=== PATIENT | female | born 1935 | race Caucasian/White ===

== ENCOUNTER 2017-05-31 01:55 | Observation (INO) | payer MEDICARE ==
[2017-05-31] MEDS ORDERED: Metoprolol Tartrate IV* 1 MG/ML 5 ML VIAL IV PRN (02:21)
[2017-05-31] MEDS ORDERED: Docusate CAP* 100 MG PO PRN (04:44)
[2017-05-31 06:20] LABS: BUN/Creatinine Ratio 25.2 (8-20); Calcium 9.6 mg/dL (8.6-10.3); EGFR African American 45.2 (>60); EGFR Non-African American 35.1 (>60); Potassium 3.7 mmol/L (3.5-5.0)
[2017-05-31 06:23] LABS: Troponin I 0.03 ng/mL (<0.04)
[2017-05-31] MEDS: IRON POLYSACCHARIDE COMPLEX VI PO SCH ×2 (07:49→22:14)
[2017-05-31] MEDS: Allopurinol TAB* 300 MG PO SCH (07:50)
[2017-05-31] MEDS: Furosemide TAB* 40 MG PO SCH (07:50)
[2017-05-31] MEDS ORDERED: cloNIDine TAB* 0.1 MG PO SCH ×2 (09:00)
[2017-05-31] MEDS: Potassium Chlor TAB* 20 MEQ TAB.ER PO SCH (10:07)
--- NOTE | 2017-05-31 11:34 | HP ---
CC: Dr. Finnegan; Dr. Frias * ADMISSION HISTORY AND PHYSICAL: DATE OF ADMISSION: 05/31/17 CHIEF COMPLAINT: Tachycardia. HISTORY OF PRESENT ILLNESS: Ms. Rai is an 82-year-old woman with history of hypertension and kidney disease who presented to the emergency department at [facility] on the day of admission with 1 week of URI symptoms. She states she was at home and felt different, so she checked her blood pressure and found her heart rate in the 140s on the monitor, and her blood pressure a little higher than normal. She felt weak all over, but had no chest pain or palpitations or focal weakness. She came to the emergency department and was found to have heart rate in the 140s, which responded to IV labetalol, which brought her heart rate down to 93 to 110 range. The patient had a troponin test in the ER, which came back at 0.038. Angelina Zabala, physician statistical assistant requested transfer of the patient to this hospital for observation or admission based on the tachycardia and elevated troponin and I accepted the patient. In obtaining further history from the patient, she does state that she has been taking medications for her URI, possibly Mucinex including Sudafed. Review of the chart also shows that she was admitted to the [facility] from March 05 to with hypertensive urgencies. PAST MEDICAL HISTORY: Includes chronic kidney disease stage 2 and hypertension , end-stage renal disease. She also has history of uterine cancer. PAST SURGICAL HISTORY: Left leg distal leg tibial fracture with ORIF in the past. She had BELIA/BSO for cancer in 2015. MEDICATIONS ON ADMISSION: 1. Allopurinol 300 mg p.o. daily. 2. Calcium carbonate 1 tab p.o. daily. 3. Clonidine 0.1 mg p.o. b.i.d. 4. Docusate 100 mg p.o. daily. 5. Furosemide 40 mg p.o. q.a.m. 6. Multivitamin with iron 1 tab p.o. daily. 7. Meclizine 25 mg p.o. daily. 8. Simethicone as needed ALLERGIES: AMLODIPINE, SULFA FAMILY HISTORY: Notable for son who has had VT at age 53. Brother at age 69 of VT. Daughter has thyroid cancer at age 40. SOCIAL HISTORY: She is retired, worked in insurance. She is a . She has 2 children. Her healthcare proxy will be her daughter, Yessi. She never smoked. No alcohol or drug use. REVIEW OF SYSTEMS: The patient denies any fevers, weight loss, or anorexia. The patient denies any chest pain or palpitations. The patient denies any hemoptysis, but does have cough and some shortness of breath on exertion. The patient denies any diarrhea, constipation, or abdominal pain. Remainder of her 14-point review of systems is negative other than that mentioned in the HPI. PHYSICAL EXAMINATION GENERAL: She is elderly woman, in no acute distress. VITAL SIGNS: Temperature is 36.5, pulse 87, respirations 18, blood pressure is 120/80, O2 sat is 77% on room air. HEENT: Head is normocephalic, atraumatic. Sclerae anicteric. Pupils are equal , round and reactive to light and accommodation. Oropharynx is moist, no lesions. NECK: No JVD. No carotid bruit. No thyromegaly. LUNGS: Clear to auscultation and percussion bilaterally. HEART: Regular rate and rhythm. No murmurs or gallops. ABDOMEN: Soft, nontender. Positive bowel sounds. No hepatosplenomegaly. EXTREMITIES: No peripheral edema. Dorsalis pedis pulses are 1+ bilaterally. NEUROLOGIC: Cranial nerves II through XII are intact. Motor strength is 5/5 throughout. Deep tendon reflexes are symmetric. LABORATORY DATA: Sodium 137, potassium 4.1, chloride 100, bicarbonate 26, BUN 41, creatinine 1.7, glucose 132, calcium 10.0, magnesium 1.8, albumin 3.6, AST 21, ALT 19. Troponin 0.03 in [facility] and second troponin 0.04 at this hospital. White count 7.53, hemoglobin 10.7, hematocrit 34.9%, and platelets 239. EKG shows sinus tachycardia at 114 beats per minute with left axis deviation and no clear ischemia. Chest x-ray is negative for infiltrates or effusions over at [facility]. ASSESSMENT AND PLAN: An 82-year-old woman presenting with tachycardia. Differential tachycardia will include sepsis, dehydration, anemia, febrile illness, anxiety, cardiac arrhythmia, or medication side effects. The patient will be admitted to this hospital for observation and further testing to determine which of these is the primary cause. It is possible that she was taking Sudafed and this caused tachycardia. She does have elevated troponin, which would point towards cardiac ischemia or also could be related to her chronic kidney disease. This will be repeated and trended. The stress test could be completed as an outpatient as she is relatively asymptomatic, does not appear to have a stable angina. Code status is full. Healthcare proxy will be her daughter. For DVT prophylaxis, she will have subcutaneous Lovenox while she is here in the hospital. [id number]/[facility] #: [id number] TAQUERIA
--- NOTE | 2017-05-31 14:35 | PN ---
Subjective Date of Service: 05/31/17 Interval History: Pt is feeling well. She states she never felt unwell. She denies any chest pain , palpitations or SOB. Objective Active Medications: Allopurinol (Zyloprim Tab*) 300 mg PO DAILY [facility] Last Admin: 05/31/17 07:50 Dose: 300 mg Clonidine HCl (Catapres Tab*) 0.1 mg PO BID [facility] Docusate Sodium (Colace Cap*) 100 mg PO DAILY PRN PRN Reason: CONSTIPATION Furosemide (Lasix Tab*) 40 mg PO DAILY [facility] Last Admin: 05/31/17 07:50 Dose: 40 mg Metoprolol Tartrate (Lopressor Iv*) 5 mg IV Q6H PRN PRN Reason: BLOOD PRESSURE Pto:Nf Med* (Iron Polysaccharide Complex-Vi [Poly- Iron 150 Forte 150- 25-1 Mg- Mcg-Mg 1 cap PO BID [facility] Last Admin: 05/31/17 07:49 Dose: Not Given Potassium Chloride (Klor Con Er Tab*) 20 meq PO DAILY [facility] Last Admin: 05/31/17 10:07 Dose: 20 meq Vital Signs 05/31/17 05/31/17 05/31/17 02:10 06:47 07:25 Temperature 97.7 F 97.4 F Pulse Rate 87 118 Respiratory 18 18 18 Rate Blood Pressure 120/80 122/74 (mmHg) O2 Sat by Pulse 97 97 Oximetry Oxygen Devices in Use Now: None Appearance: Elderly female sitting up in bed, NAD Eyes: No Scleral Icterus Ears/Nose/Mouth/Throat: Mucous Membranes Moist Respiratory: Symmetrical Chest Expansion and Respiratory Effort, Clear to Auscultation Cardiovascular: NL Sounds; No Murmurs; No JVD, RRR Abdominal: NL Sounds; No Tenderness; No Distention Extremities: No Clubbing, Cyanosis Skin: No Rash or Ulcers, No Nodules or Sclerosis Neurological: Alert and Oriented x 3 Result Diagrams: 05/31/17 05:51 Assess/Plan/Problems-Billing Ms Rai is an 82 yo F who has a h/o HTN, stage III CKD and endometrial cancer who presented to [facility] with c/o tachycardia (found incidentally while checking her BP) and was transferred to [facility] [place] for evaluation due to a slightly elevated troponin. - Patient Problems (1) SVT (supraventricular tachycardia) Current Visit: Yes Status: Acute Code(s): I47.1 - SUPRAVENTRICULAR TACHYCARDIA SNOMED Code(s): 0200789 Comment: THe patient has been having runs of SVT. Most recent developed after I saw the patient and while I was writing this note. She was sitting up in bed, still when the nurse noted a HR of ~150 and regular. She broke on her own. Will place hold parameters on clonidine for now and start metoprolol 12.5mg BID to try to prevent the SVT. Will order an echo for tomorrow. (2) Elevated troponin Current Visit: Yes Status: Acute Code(s): R74.8 - ABNORMAL LEVELS OF OTHER SERUM ENZYMES SNOMED Code(s): 655060137 Comment: Likely secondary to demand ischemia secondary to rapid HR. Will order echo for tomorrow. (3) HTN (hypertension) Current Visit: Yes Status: Acute Code(s): I10 - ESSENTIAL (PRIMARY) HYPERTENSION SNOMED Code(s): 11569667 Comment: BP is under good control. Continue to monitor with addition of metoprolol. (4) DVT prophylaxis Current Visit: Yes Status: Acute Code(s): KCR4225 - SNOMED Code(s): 762239939 Comment: start SQ heparin (5) Full code status Current Visit: Yes Status: Acute Code(s): Z78.9 - OTHER SPECIFIED HEALTH STATUS SNOMED Code(s): 812790730
[2017-05-31] MEDS: Metoprolol Tartrate TAB* 25 MG PO SCH ×2 (14:49→22:10)
[2017-05-31] MEDS: cloNIDine TAB* 0.1 MG PO SCH (22:09)
[2017-05-31] MEDS: Heparin VIAL(*) 5000 UNITS/ML VIAL (FIVE THOUSAND) SUBCUT SCH (22:11)
[2017-06-01 02:14] LABS: Urine Bilirubin Negative (Negative); Urine Glucose Negative (Negative); Urine Nitrite Negative (Negative)
[2017-06-01] MEDS: Heparin VIAL(*) 5000 UNITS/ML VIAL (FIVE THOUSAND) SUBCUT SCH ×2 (05:29→13:44)
[2017-06-01 06:40] LABS: Hematocrit 35 % (35-47); Hemoglobin 10.5 g/dl (12.0-16.0); Mean Corpuscular HGB Conc 30 g/dl (31-36); Mean Corpuscular Hemoglobin 23 pg (27-31); Mean Corpuscular Volume 76 fL (80-97); Mean Platelet Volume 10 um3 (7.4-10.4); Red Cell Distribution Width 18 % (10.5-15)
[2017-06-01 06:41] LABS: Comments Flag Yes
[2017-06-01] MEDS: Potassium Chlor TAB* 20 MEQ TAB.ER PO SCH (09:42)
[2017-06-01] MEDS: IRON POLYSACCHARIDE COMPLEX VI PO SCH (09:45)
[2017-06-01] MEDS: Allopurinol TAB* 300 MG PO SCH (09:51)
[2017-06-01] MEDS: cloNIDine TAB* 0.1 MG PO SCH (09:53)
[2017-06-01] MEDS: Metoprolol Tartrate TAB* 25 MG PO SCH (09:58)
[2017-06-01] MEDS: Furosemide TAB* 40 MG PO SCH (09:58)
[2017-06-01] MEDS ORDERED: Perflutren Lipid Microsphere* 3 ML VIAL ONE (11:43)
--- NOTE | 2017-06-01 13:44 | RAD ---
Indication: Endometrial carcinoma status post radiation therapy. Real-time sonography of the kidneys was performed. The right kidney measures 9.5 x 4.1 x 5.4 cm. No hydronephrosis is noted. The left kidney measures 4.5 x 2.9 x 2.8 cm and appears atrophic. Parapelvic cyst is noted in the lower pole of the left kidney measuring up to 3.0 cm. The prevoid urinary bladder measures 70 mL. No significant post void residual is noted. Bladder wall measures 5 mm. No bladder wall masses are noted. Ureteral jets for Limited in evaluation. IMPRESSION: No hydronephrosis is noted. Atrophic left kidney.
[2017-06-01 13:57] VITALS: BP 91/69
--- NOTE | 2017-06-01 14:51 | ECHO ---
Patient: NIKI LANDAVERDE [facility] Rec#: [id number] : 1935 Date: 06/01/2017 Age: 82y Height: 152 cm / 59.8 in Weight: 86.8 kg / 191.3 lbs Sex: F BSA: 1.8 Room#: [facility] Admit Date#: 05/31/2017 Type: Inpatient Referring: Daisy Sanchez DO Reading: Stephane Yanez MD Supervisor Assembly Room: Clementine Monahan RN RDCS CC: Ken Finnegan DO Transthoracic Echocardiogram Indication: SVT BP: 165/86 HR: 91 Rhythm: NSR with PACs Findings History: HTN, CKD, obesity Technical Comments: The study is technically limited due to patient body habitus. Completed at 1230. Left Ventricle: The left ventricular chamber size is normal. Mild to moderate concentric left ventricular hypertrophy is observed. Global left ventricular wall motion and contractility are within normal limits. The left ventricle appears hyperdynamic. The estimated ejection fraction is greater than 65%. There is an E to A reversal in the mitral valve flow pattern suggestive of diastolic dysfunction. Left Atrium: The left atrial chamber size is normal. Right Ventricle: The right ventricular chamber size and systolic function are within normal limits. Right Atrium: The right atrial cavity size is normal. Aortic Valve: The aortic valve is trileaflet. The aortic valve leaflets are mildly thickened. Systolic excursion of the right coronary cusp is reduced. There is no evidence of aortic valve sclerosis or stenosis. There is no evidence of aortic regurgitation. There is mild aortic stenosis. The mean gradient of the aortic valve is 10 mmHg. The peak instantaneous gradient of the aortic valve is 15.7 mmHg. The aortic valve area, by peak velocities, is calculated at 1.6 cm2. The aortic valve area, by VTI's, is calculated at 1.6 cm2. Mitral Valve: There is mitral annular calcification. The mitral valve leaflets are mildly thickened. Mild subvalvular thickening of the mitral valve is visualized. There is a trace of mitral regurgitation. There is no evidence of mitral stenosis. Tricuspid Valve: The tricuspid valve leaflets are normal. There is trace tricuspid regurgitation. Unable to estimate the right ventricular systolic pressure. Pulmonic Valve: The pulmonic valve structure is not well visualized. There is a trace pulmonic regurgitation. There is no pulmonic stenosis. Pericardium: There is no significant pericardial effusion. A pericardial fat pad is visualized. Aorta: There is no dilatation of the ascending aorta. The aortic arch is not well visualized. There is no dilation of the aortic root. Pulmonary Artery: The main pulmonary artery is not well visualized. Venous: The venous system is not well visualized. The inferior vena cava is not visualized. Contrast: Definity was used to optimize study. A total of 3 ml of Definity was administered IV to enhance endocardial border definition. Conclusions Global left ventricular wall motion and contractility are within normal limits. The left ventricle appears hyperdynamic. The estimated ejection fraction is greater than 65%. There is an E to A reversal in the mitral valve flow pattern suggestive of diastolic dysfunction. There is no evidence of aortic regurgitation. There is mild aortic stenosis. There is a trace of mitral regurgitation. There is trace tricuspid regurgitation. Unable to estimate the right ventricular systolic pressure. There is no significant pericardial effusion. Measurements Name Value Normal Range RVDdMajor (2D) 3 cm (2.2 - 4.4) RAd ISD 4CH 4.5 cm (3.4 - 4.9) RA (A4C)W 3.2 cm (2.9 - 4.6) IVSd (2D) 1.3 cm (0.6 - 1) LVPWd (2D) 1.2 cm (0.6 - 1) LVIDd (2D) 4.4 cm (3.6 - 5.4) Aortic Annulus 1.7 cm (1.4 - 2.6) Ao root diameter (2D) 2.9 cm (2.1 - 3.5) Ascending Ao 2.9 cm (2.1 - 3.4) LA dimension (AP) 2D 3.5 cm (2.3 - 3.8) LAd ISD 4CH 4.7 cm (2.9 - 5.3) LA ISD 4CH W 3.4 cm (2.5 - 4.5) Name Value Normal Range LA ESV SP 4CH (A/L) 43 ml - LA ESV SP 2CH (A/L) 56 ml - LA ESV BP (A/L) 50 ml - LA ESV BP (A/L) index 27.3 ml/m2 - LA ESV SP 4CH (MOD) 41 ml - LA ESV SP 2CH (MOD) 51 ml - Name Value Normal Range MV E-wave Vmax 0.74 m/sec - MV deceleration time 332 msec - MV A-wave Vmax 1.2 m/sec - MV E:A ratio 0.63 ratio - LV septal e' Vmax 0.06 m/sec - LV lateral e' Vmax 0.08 m/sec - LV E:e' septal ratio 12.3 ratio - LV E:e' lateral ratio 9.3 ratio - Name Value Normal Range AV Vmax 2 m/sec - AV VTI 43.8 cm - AV peak gradient 15.7 mmHg - AV mean gradient 10 mmHg - LVOT diameter 2 cm - LVOT Vmax 0.99 m/sec - LVOT VTI 21.7 cm - LVOT peak gradient 3.9 mmHg - LVOT mean gradient 2 mmHg - DOI (VTI) 0.5 ratio - DOI (Vmax) 0.5 ratio - ROS (continuity Vmax) 1.6 cm2 - ROS (continuity VTI) 1.6 cm2 - Name Value Normal Range PV Vmax 0.65 m/sec -
--- NOTE | 2017-06-02 02:16 | DS ---
CC: Dr. Ken Finnegan; Dr. Diego DISCHARGE SUMMARY: DATE OF ADMISSION: 05/31/17 DATE OF DISCHARGE: 06/01/17 PRIMARY CARE PROVIDER: Dr. Ken Finnegan. PLANTING MATERIAL UNLOADER: Dr. Diego. DISCHARGE DIAGNOSIS: Episodes of supraventricular tachycardia. SECONDARY DIAGNOSES: 1. Chronic kidney disease, stage 3. 2. Hypertension. 3. History of uterine cancer status post total abdominal hysterectomy, bilateral salpingo-oophorect tab and radiation therapy in 2014. 4. Status post left tibial fracture ORIF. MEDICATIONS: 1. Allopurinol 300 mg p.o. daily. 2. Calcium plus vitamin D 500/200 1 tablet p.o. daily. 3. Colace 100 mg p.o. daily as needed for constipation. 4. Furosemide 40 mg p.o. daily. 5. Iron polysaccharide 1 capsule p.o. b.i.d. 6. Iron plus vitamin C plus vitamin B12 1 tablet p.o. daily. 7. Meclizine 25 mg p.o. daily as needed for dizziness. 8. Simethicone 125 mg p.o. daily as needed for diarrhea. Medication change: Clonidine was reduced from 0.1 mg p.o. b.i.d. to 0.1 mg p.o. at bedtime. New medication: Metoprolol tartrate 12.5 mg p.o. b.i.d. HOSPITAL COURSE: Ms. Rai is an 82-year-old lady with past medical history as stated above that presented to [facility] with complaints of rapid heart rate. She states that she had n o chest pain or palpitations, but she measured her blood pressure and her monitor showed her heart r ate of 140, so that prompted her visit to the emergency room. As per HPI, she was found to have a h eart rate in the 140's, responded to IV labetalol, but she had a minimally elevated troponin, so foster t prompted her transfer to our facility. There is report of an upper respiratory infection and that she took Sudafed and that could have prompted this episode. In our facility, the patient had serial troponins that were 0.04, 0.03, and 0.03. The troponin was m inimally elevated and this could be secondary to the episode of SVT or her chronic kidney disease. As described above, the patient was asymptomatic. While in telemetry, she had one episode of SVT wi th heart rate of 160's and she was asymptomatic and unaware at that point. Decision was made to start her on metoprolol and she has had no further episodes of SVT so far. Wit h the combination of metoprolol and clonidine, her blood pressure has been on the softer side, so th e idea is to transition her from clonidine to metoprolol. We are going to cut down her clonidine to 0.1 mg at bedtime only and start metoprolol 12.5 twice a day. Eventually, as outpatient, the plan will be to discontinue the clonidine and continue the metoprolol. The patient had a transthoracic echocardiogram that showed global left ventricular wall motion and c ontractility within normal limits, the left ventricle appears hyperdynamic with ejection fraction gr eater than 65%. There is mild aortic stenosis. The patient declined stress test at this time. She states she has chronic back pain and cannot tole rate lying 15 minutes on the nuclear medicine table. I talked to her multiple times and I explained that even though her echocardiogram did not show anything major, this is not enough to rule out cor onary artery disease. She states that she will think about it and may consider having a stress test as outpatient to complete her workup. She states that 2 years ago she was admitted to [facility] where she was found to have a rapid hear t beat. She stated she had a workup at that time and "everything was normal." At the time of this dictation, a TSH level was pending, and the results should be followed as outpat ient. The patient was very concerned with the fact that she was going to miss her renal ultrasound appoint ment. I contacted Dr. Diego and she had her renal ultrasound done here. It showed no hydronephros is, only atrophic left kidney that apparently the patient was already aware of. She is medically stable for discharge at this time. She understands the plan to transition from kathy nidine to metoprolol. I believe she should have a Holter as outpatient since her SVT episodes are p retty much asymptomatic. If Holter still shows episodes of SVT, her metoprolol dose needs to be tit rated and she may benefit of seeing a manager part as outpatient at that point. Further conversatio ns regarding the importance of stress test should also be continued. The patient is medically stable to be discharged at this time. PHYSICAL EXAMINATION: Vital Signs: Temperature 97.2, heart rate is 73, respiratory rate is 16, oxy gen saturation 96% on room air, blood pressure is 91/69. General: The patient is a pleasant elderly lady, lying in bed, in no acute distress. CVS: Normal S1, S2. Regular rate and rhythm. Chest: Breath sounds present bilaterally with no added sounds. Extremities: No edema. Neuro: She is franc rt, oriented x3. Able to move all 4 extremities. DIET: Heart healthy diet. Avoid caffeine. ACTIVITIES: As tolerated. DISPOSITION: To home. STATUS WHILE IN THE HOSPITAL: Observation. Please keep in mind this is a summarized version of this patient's hospital stay. If you need more i nformation, please feel free to call me at [phone] or please request the full medical records. TIME SPENT: Approximately 45 minutes were spent to complete this discharge. [id number]/[facility] #: [id number]
== END 2017-06-01 16:45 | disposition home or self-care (01) ==
LOC: MEDTELE 01:58
PROVIDERS: ADMIT Internal Medicine; ATTEND Internal Medicine
DX: I47.1 Supraventricular tachycardia (principal); I12.9 Hypertensive chronic kidney disease with stage 1 through stage 4 chronic kidney disease, or unspecified chronic kidney disease; N18.3 Chronic kidney disease, stage 3 (moderate); R74.8 Abnormal levels of other serum enzymes; Z85.42 Personal history of malignant neoplasm of other parts of uterus; Z79.899 Other long term (current) drug therapy; Z88.2 Allergy status to sulfonamides; Z88.8 Allergy status to other drugs, medicaments and biological substances
CPT/HCPCS: 36415; 76770; 80048; 81003; 84443; 84484; 85025; 93005; 93306; 96372; A9270-GY; C8929; G0378; J1644

== ENCOUNTER 2018-07-08 10:17 | Inpatient (IN) | payer MEDICARE ==
[2018-07-08] MEDS ORDERED: Docusate CAP* 100 MG PO PRN (14:58)
[2018-07-08] MEDS ORDERED: Simethicone TAB* 80 MG TAB.CHEW PO PRN (14:58)
[2018-07-08] MEDS ORDERED: ZOSYN 3.375 GM Q8H per EXTENDED INFUSION IVPB SCH ×2 (15:00)
[2018-07-08] MEDS ORDERED: Vancomycin per Pharmacy* NOTE FOLLOW UP PRN (15:00)
[2018-07-08] MEDS ORDERED: Albuterol 2.5 MG/3 ML NEB.SOL* (0.083%) INH PRN (15:01)
[2018-07-08] MEDS ORDERED: Magnesium Hydroxide LIQ* 30 ML UDC PO PRN (15:01)
[2018-07-08] MEDS ORDERED: LORazepam INJ* 2 MG/ML 1 ML VIAL IV PUSH PRN (15:01)
--- NOTE | 2018-07-08 15:20 | ADMNOTE ---
Admission Primary Care Provider: Ken Finnegan Chief Complaint: Fevers and rigors History of Present Illness: Mrs. Rai is a 83 yo female with complex medical history who has been followed locally by Dr. Augustin for her metastatic endometrial cancer. On she was admitted to the [facility] with flank pain and acute urinary obstruction, ultimately requiring a right percutaneous nephrostomy tube. This obstruction was felt secondary to progressive disease with rising Ca 125, however a biopsy was unsuccessful. She was started, appropriately, by Dr. Esparza, on Femara (aromatase inhibitor). During her admission she required IV antibiotics for a UTI, treated with Cetriaxone and ultimately discharged home on Amoxicillin 04/28/18. On discharge she followed-up locally with Dr. Augustin, on 05/26/19, at which time she was doing well and an outpatient PET was scheduled for 3 mo. time. Unfortunately over the last several weeks she had developed increased back pain (of which she adamantly states is related directly to the nephrostomy tube) and was admitted by her primary care provider , Dr. Finnegan, to [facility] for pain management on 06/30/18. Her pain was improved with use of narcotics and she was transitioned to Swing status on 07/05 as it was felt she could not return home independently. Unfortunately shortly after this transition she developed increased confusion and modification of her narcotics was attempted. On 05/07/18 she developed acute rigors and a fever and was started on broad spectrum antibiotics d/t concern for UTI with UA revealing +blood, WBCs, esterace, nitrates, and casts. Within the first 24 hours of starting abx. she has improved, however with active infection and appropriate timing for planned nephrostomy tube exchange, she has transferred to [facility] for further management. At this time she is quite adamant that she is not having abdominal pain and her only pain is directly related to her right percutaneous nephrostomy tube. She denies radicular pain on the right leg, however her family states she has been complaining of this for some time. She is visibly shaking though denies overt chills. Her family notes these 'chills' are similar to yesterday. She is tolerating PO liquids and has a marked improved mentation with notable agitation if specific needs are not met (for example she was quite upset on admission that she did not get a private room and when asked to sit up for better assessment of respiratory status and perc. tube she refused). Once accepting of re-positioning she then notes her right leg feels swollen. On transfer Dr. Finnegan had talked with her and the family regarding the potential that with her underlying cancer she may not survive this episode, however she is unable to specifically state a desire to be DNR. Her healthcare proxy mentions limited medical interventions. Allergies/Medications Medication: Acetaminophen (Tylenol Tab*) 650 mg PO Q4H PRN PRN Reason: fever, headache, rigors Hydrocodone Bitart/Acetaminophen ([place] 5-325 Tab*) 1 tab PO Q4H PRN PRN Reason: PAIN Albuterol (Ventolin 2.5 Mg/3 Ml Neb.Gemma*) 2.5 mg INH Q4H PRN PRN Reason: SOB/WHEEZING Clonidine HCl (Catapres Tab*) 0.1 mg PO BEDTIME BETZY Docusate Sodium (Colace Cap*) 100 mg PO DAILY PRN PRN Reason: CONSTIPATION Fentanyl (Duragesic Patch 12 Mcg/Hr *) 12 mcg TRANSDERM Q72H BETZY Piperacillin Sod/Tazobactam (Sod 3.375 gm/ Sodium Chloride) 100 mls @ 25 mls/ hr IVPB Q8H BETZY Lorazepam (Ativan Inj*) 0.5 mg IV PUSH Q4H PRN PRN Reason: agitation/insomnia/anxiety Magnesium Hydroxide (Milk Of Magnesia Liq*) 30 ml PO Q6H PRN PRN Reason: Indigestion/constipation Metoprolol Tartrate (Lopressor Tab*) 12.5 mg PO BID [facility] Pharmacy Profile Note (Fentanyl Patch Check Q Shift) 1 note N/A 0700,1900 BETZY Simethicone (Mylicon Tab*) 120 mg PO DAILY PRN PRN Reason: DIARRHEA Vancomycin 1 gram IV, initial dose given @ [facility] 07/07/18 1800 Allergies/Adverse Reactions: Allergies Allergy/AdvReac Type Severity Reaction Status Date / Time amlodipine Allergy Unknown Rash Verified 07/08/18 15:19 Sulfa (Sulfonamide Allergy Unknown Hives Verified 07/08/18 15:19 Antibiotics) History - Past Medical History Hx Blood Dyscrasias: Yes - thalassemia carrier, OPHELIA Hx Cancer: Yes - Endometrial Cancer daignosed in 06/2015 treated with surgery followed by RT and brachytherapy Hx Circulatory Problems: Yes - DVT 2014 (with cancer dx. & postopvenous), insufficiency with multiple SVTs Hx Hypercholesterolemia: Yes Hx Hypertension: Yes Hx Musculoskeletal Deformity: Yes - DJD LS/T/C-spine, cervical stenosis Surgical History: Yes Surgery Procedure, Year, and Place: Bilat. salpingo-oophorectomy, Hysterectomy, left ureteral stent, and lymph adenoectomy 06/27/15. Left open reduction internal fixation x2 1967. IVC filter 06/22/15. right percutaneous nephrostomy Other History: Asthma. left atrophic kidney. chronic renal insufficiency. benign positional vertigo. sacrococcygeal teratoma - Social History Hx Alcohol Use: No Hx Tobacco Use: No Marital Status: / Number of Children: Review of Systems - Review of Systems Constitutional Symptoms: Positive: Fatigue, Fever, Other - chills, pain Dermatology: Positive: Normal HEENT: Positive: Normal Eyes: Positive: Normal Pulmonary: Positive: Wheezing, Shortness of Breath, Asthma, Other - supplemental O2 Cardiology: Positive: Normal Gastroenterology: Positive: Normal Genital - Urinary: Positive: Hematuria - via perc. neph tube, Other Genitourinay - Female: Menopause - age 45 Musculoskeletal: Positive: Other - righ leg swollen Neurology: Positive: Normal Physical Exam - Physical Exam Physical Examination: Pale appearing, obese, female in no acute distress. Shaking chills noted, and notably agitated by current state of health. She is alert and oriented x3 and aware of her admission "due to something with my kidneys." No obvious neuro-cognitive deficits HRR, S1S2, distant heart sounds LS with scattered wheeze, tachypnea, and supplemental O2 +BS, with round soft and non-tender abd., no overt mass, however pt. would not allow a complete abd. exam yelling that "nothing is wrong with my stomach." +PP=bilat with slight swelling of right thigh Right percutaneous nephrostomy tube with dark, esme colored urine. Dressing CDI without tenderness surrounding during light palpation Able to reposition self minimally without assistance Results - Lab Results Lab Results: Notable Labs from [facility] 07/08/18: WBC 7.9, Granulocytes 83.9%, mococytes 8.4%, H&H 7.5/24.7, plt. 246 Na+ 137, K+ 4.4, BUN 29, Cr 1.8, BNP 457 07/07 lactic acid 0.6 - Radiology Radiology Results: CT abd./pevlis without contrast 06/30 @ [facility]: Findings: Again seen is percutaneous nephrostomy tube in the right kidney. No right hydronephrosis. Again seen is atrophic left kidney. Distended gallbladder with stones measures 9 cm in length by 4.3 cm diameter, with no pericholecystic fluid. Lung bases clear. Liver, spleen, adrenals unremarkable. Fatty replacement of the pancreas also see before. Small hiatal hernia. Small bowel normal caliber. Normal appendix. Colonic diverticulosis with no evidence of diverticulitis. Again seen is post hysterectomy. Bladder is seen. Atherosclerosis of the abdominal aorta with 2.7 cm dilatation distally also seen before. Multilevel degenerative changes in the lumbar spine also seen before. IVC filter seen CT head w/o contrast 06/30/18: Findings: chronic ischemic changes, volume loss with no acute intracranial findings. Visualized maxillofacial sinuses and mastoids clear. Assessment and Plan Impression: 83 yo female with recently progressive endometrial cancer transferred from [facility] due to acute pyelonephritis related to percutaneous nephrostomy tube. Slight improvement since initiation of antibiotics approximately 24 hours ago, however overall prognosis guarded related to progressive cancer and multiple co-morbidities. I discussed with the patient my concern that she may not recover from this acute insult, however she does not "see why that wouldn't happen" despite my attempts to review her current condition. Plan: 1. Admit Medical Unit 2. Cont. IV Vanco and Zosyn 3. Neph tube exchange by Dr. Angelo, goal of tomorrow 4. DVT prophylaxis with SCDs, no heparin d/t concern with blood in urine, decreased H&H, and planned intervention tomorrow 5. Cont. PRN pain meds and Fentanyl 6. Repeat CBC, CMP, lactic acid, blood cultures, and urine culture now Full Code, however review of healthcare proxy indicates patient would not want snf intubation or tube feeding
[2018-07-08] MEDS ORDERED: fentaNYL PATCH 12 MCG/HR TRANSDERM SCH (16:00)
[2018-07-08] MEDS: fentaNYL Patch Check Q Shift 1 NOTE FOLLOW UP SCH (17:52)
[2018-07-08] MEDS ORDERED: Vancomycin(*) 500 MG in NS 0.9% 250 ML* 250 ML IVPB ONE (18:00)
[2018-07-08] MEDS ORDERED: fentaNYL Patch Check Q Shift 1 NOTE SCH (19:00)
[2018-07-08 19:30] LABS: ABS Basophils 0 10^3/ul (0-0.2); ABS Eosinophils 0.1 10^3/ul (0-0.6); ABS Lymphocytes 0.4 10^3/ul (1.0-4.8); ABS Monocytes 0.7 10^3/ul (0-0.8); ABS Neutrophils 7.4 10^3/ul (1.5-7.7); ABS Nucleated RBC 0 10^3/ul; Eosinophil % 1.7 % (0-6); Hematocrit 24 % (35-47); Hemoglobin 7.6 g/dl (12.0-16.0); Lymphocyte % 4.6 % (25-47); Mean Corpuscular HGB Conc 32 g/dl (31-36); Mean Corpuscular Hemoglobin 22 pg (27-31); Mean Corpuscular Volume 71 fL (80-97); Mean Platelet Volume 9.6 um3 (7.4-10.4); Nucleated Red Blood Cells % 0.1; Platelet Count 248 10^3/ul (150-450); Red Blood Count 3.42 10^6/ul (4.00-5.40); Red Cell Distribution Width 18 % (10.5-15); White Blood Count 8.7 10^3/ul (3.5-10.8)
[2018-07-08 19:54] LABS: EGFR Non-African American 25.6 (>60)
[2018-07-08] MEDS: cloNIDine TAB* 0.1 MG PO SCH (20:22)
[2018-07-08] MEDS: Metoprolol Tartrate TAB* 25 MG PO SCH (20:22)
[2018-07-08] MEDS: Acetaminophen TAB* 325 MG PO PRN (20:32)
[2018-07-09] MEDS: ZOSYN 3.375 GM Q12H per EXTENDED INFUSION IVPB SCH ×4 (03:01→15:21)
[2018-07-09] MEDS: fentaNYL Patch Check Q Shift 1 NOTE FOLLOW UP SCH ×2 (06:45→18:40)
[2018-07-09] MEDS: Metoprolol Tartrate TAB* 25 MG PO SCH ×2 (09:04→20:08)
[2018-07-09] MEDS ORDERED: Vancomycin Random Level* NOTE FOLLOW UP ONE (10:00)
[2018-07-09 10:29] LABS: ABS Basophils 0 10^3/ul (0-0.2); ABS Eosinophils 0.2 10^3/ul (0-0.6); ABS Lymphocytes 0.3 10^3/ul (1.0-4.8); ABS Monocytes 0.5 10^3/ul (0-0.8); ABS Neutrophils 6.8 10^3/ul (1.5-7.7); ABS Nucleated RBC 0 10^3/ul; Eosinophil % 2.3 % (0-6); Hematocrit 24 % (35-47); Hemoglobin 7.3 g/dl (12.0-16.0); Lymphocyte % 3.8 % (25-47); Mean Corpuscular HGB Conc 31 g/dl (31-36); Mean Corpuscular Hemoglobin 22 pg (27-31); Mean Corpuscular Volume 71 fL (80-97); Mean Platelet Volume 9.7 um3 (7.4-10.4); Nucleated Red Blood Cells % 0; Platelet Count 232 10^3/ul (150-450); Red Cell Distribution Width 18 % (10.5-15); White Blood Count 7.8 10^3/ul (3.5-10.8)
[2018-07-09 10:39] LABS: EGFR Non-African American 25.6 (>60)
[2018-07-09] MEDS ORDERED: Vancomycin(*) 1,000 MG in NS 0.9% 250 ML* 250 ML IVPB ONE (12:00)
[2018-07-09] MEDS: Acetaminophen TAB* 325 MG PO PRN ×2 (12:01→16:58)
[2018-07-09] MEDS: HYDROcodone/ACETAMIN 5-325 MG* 1 TAB PO PRN (20:08)
[2018-07-09] MEDS: cloNIDine TAB* 0.1 MG PO SCH (20:08)
[2018-07-10] MEDS: HYDROcodone/ACETAMIN 5-325 MG* 1 TAB PO PRN ×4 (01:41→22:27)
[2018-07-10] MEDS: ZOSYN 3.375 GM Q12H per EXTENDED INFUSION IVPB SCH ×4 (02:55→15:13)
[2018-07-10] MEDS ORDERED: Vancomycin Random Level* NOTE FOLLOW UP ONE (06:00)
[2018-07-10] MEDS: fentaNYL Patch Check Q Shift 1 NOTE FOLLOW UP SCH ×2 (06:41→18:39)
[2018-07-10 07:14] LABS: ABS Basophils 0 10^3/ul (0-0.2); ABS Eosinophils 0.3 10^3/ul (0-0.6); ABS Lymphocytes 0.5 10^3/ul (1.0-4.8); ABS Monocytes 0.6 10^3/ul (0-0.8); ABS Neutrophils 4.2 10^3/ul (1.5-7.7); ABS Nucleated RBC 0 10^3/ul; Eosinophil % 4.8 % (0-6); Hematocrit 22 % (35-47); Hemoglobin 7.2 g/dl (12.0-16.0); Lymphocyte % 8.9 % (25-47); Mean Corpuscular HGB Conc 32 g/dl (31-36); Mean Corpuscular Hemoglobin 23 pg (27-31); Mean Corpuscular Volume 70 fL (80-97); Mean Platelet Volume 9.5 um3 (7.4-10.4); Nucleated Red Blood Cells % 0; Platelet Count 223 10^3/ul (150-450); Red Blood Count 3.18 10^6/ul (4.00-5.40); Red Cell Distribution Width 18 % (10.5-15); White Blood Count 5.6 10^3/ul (3.5-10.8)
[2018-07-10 07:33] LABS: EGFR Non-African American 27.9 (>60)
[2018-07-10] MEDS: Metoprolol Tartrate TAB* 25 MG PO SCH ×2 (08:59→19:44)
[2018-07-10] MEDS: fentaNYL PATCH 12 MCG/HR TRANSDERM SCH (10:33)
[2018-07-10] MEDS: Vancomycin(*) 750 MG in NS 0.9% 250 ML* 250 ML IVPB SCH (10:35)
[2018-07-10] MEDS: cloNIDine TAB* 0.1 MG PO SCH (19:45)
[2018-07-11] MEDS: HYDROcodone/ACETAMIN 5-325 MG* 1 TAB PO PRN ×4 (02:50→18:31)
[2018-07-11] MEDS: ZOSYN 3.375 GM Q12H per EXTENDED INFUSION IVPB SCH ×4 (02:52→15:52)
[2018-07-11] MEDS: fentaNYL Patch Check Q Shift 1 NOTE FOLLOW UP SCH ×2 (06:47→19:06)
[2018-07-11] MEDS: Metoprolol Tartrate TAB* 25 MG PO SCH ×2 (09:46→20:41)
[2018-07-11] MEDS: Vancomycin(*) 750 MG in NS 0.9% 250 ML* 250 ML IVPB SCH (09:47)
[2018-07-11] MEDS: cloNIDine TAB* 0.1 MG PO SCH (20:42)
[2018-07-12] MEDS: ZOSYN 3.375 GM Q12H per EXTENDED INFUSION IVPB SCH ×4 (02:45→15:52)
[2018-07-12] MEDS: HYDROcodone/ACETAMIN 5-325 MG* 1 TAB PO PRN ×6 (03:04→22:19)
[2018-07-12] MEDS: fentaNYL Patch Check Q Shift 1 NOTE FOLLOW UP SCH ×2 (06:53→18:56)
[2018-07-12] MEDS: Metoprolol Tartrate TAB* 25 MG PO SCH ×2 (07:42→20:57)
[2018-07-12] MEDS ORDERED: Vancomycin Trough Check NOTE FOLLOW UP ONE (09:30)
[2018-07-12 10:22] LABS: EGFR Non-African American 28.7 (>60); Vancomycin Trough 17.9 mcg/mL
--- NOTE | 2018-07-12 10:25 | PN ---
Progress Note - Progress Note Date of Service: 07/12/18 SOAP: Subjective: []Children at bedside. Feeling well with no major complaints today. Right flank pain @ tube site controlled with current regimen. Having regular BMs. Urine remains red. Medications: Acetaminophen (Tylenol Tab*) 650 mg PO Q4H PRN PRN Reason: fever, headache, rigors Last Admin: 07/09/18 16:58 Dose: 650 mg Hydrocodone Bitart/Acetaminophen ([place] 5-325 Tab*) 1 tab PO Q4H PRN PRN Reason: PAIN Last Admin: 07/12/18 07:43 Dose: 1 tab Albuterol (Ventolin 2.5 Mg/3 Ml Neb.Gemma*) 2.5 mg INH Q4H PRN PRN Reason: SOB/WHEEZING Clonidine HCl (Catapres Tab*) 0.1 mg PO BEDTIME [facility] Last Admin: 07/11/18 20:42 Dose: 0.1 mg Docusate Sodium (Colace Cap*) 100 mg PO DAILY PRN PRN Reason: CONSTIPATION Fentanyl (Duragesic Patch 12 Mcg/Hr *) 12 mcg TRANSDERM Q72H [facility] Last Admin: 07/10/18 10:33 Dose: 12 mcg Piperacillin Sod/Tazobactam (Sod 3.375 gm/ Sodium Chloride) 100 mls @ 25 mls/ hr IVPB Q12H [facility] Last Admin: 07/12/18 02:45 Dose: 25 mls/hr Vancomycin HCl 750 mg/ Sodium (Chloride) 250 mls @ 166.667 mls/hr IVPB Q24H [facility] Last Admin: 07/11/18 09:47 Dose: 166.667 mls/hr Lorazepam (Ativan Inj*) 0.5 mg IV PUSH Q4H PRN PRN Reason: agitation/insomnia/anxiety Magnesium Hydroxide (Milk Of Magnesia Liq*) 30 ml PO Q6H PRN PRN Reason: Indigestion/constipation Metoprolol Tartrate (Lopressor Tab*) 12.5 mg PO BID [facility] Last Admin: 07/12/18 07:42 Dose: 12.5 mg Pharmacy Profile Note (Fentanyl Patch Check Q Shift) 1 note FOLLOW UP 0700, 1900 [facility] Last Admin: 07/12/18 06:53 Dose: 1 note Simethicone (Mylicon Tab*) 120 mg PO DAILY PRN PRN Reason: DIARRHEA Objective: [] Vital Signs Temp Pulse Resp BP Pulse Ox 97.4 F 88 16 119/86 99 07/12/18 07:19 07/12/18 07:19 07/12/18 08:00 07/12/18 07:19 07/12/18 07:19 A&Ox3, EOMI, CALDERON, neuro grossly non-focal HRR, S1S2 LS clear without wheeze or rhonchi +BS, abd. soft and non-tender +PP=bilat., right thigh >left, bilat. ankles with mild non-pitting edema Laboratory Results - last 24 hr 07/12/18 09:24 BUN 25 H Creatinine 1.70 H Est GFR ( Amer) 34.7 Est GFR (Non-Af Amer) 28.7 Vancomycin Trough 17.9 Microbiology 07/08/18 19:15 Aerobic Blood Culture - Preliminary Blood Venous No Growth Day 3 Anaerobic Blood Culture - Preliminary No Growth Day 3 07/08/18 19:15 Aerobic Blood Culture - Preliminary Blood Venous No Growth Day 3 Anaerobic Blood Culture - Preliminary No Growth Day 3 07/08/18 13:53 Blood Culture - Preliminary Blood Venous No Growth Day 3 07/08/18 13:15 Urine Culture - Final Urine Enterococcus Faecalis Assessment: []83 yo female with significant medical history and recent progressive metastatic endometrial cancer requiring percutaneous nephrostomy tube complicated by pyelonephritis improving on broad spectrum antibiotics. Plan: []1. Pyelonephritis: Perc. Neph. tube change KYLE - Cont. IV abx., however stop Vanco and consider step down to Augmentin at d/c ( renal dosing) 2. Endometrial Cancer: Ca 125 appears to have decreased, resume AI today - PET as outpatient 3. Hx. DVTs: IVC filter in place, doppler completed this AM, though I suspect edema is secondary to compression from adenopathy Disp: plan IV zosyn for 24 hours post tube exchange and then transfer back to [facility] for resumption of rehab - PT/OT eval. now
[2018-07-12] MEDS: Vancomycin(*) 750 MG in NS 0.9% 250 ML* 250 ML IVPB SCH (10:52)
--- NOTE | 2018-07-12 11:36 | RAD ---
HISTORY: Left worse than right bilateral lower extremity edema TECHNIQUE: Multiple transverse and longitudinal ultrasound images were obtained of the veins of the left lower extremity using grayscale, color Doppler, and spectral Doppler imaging with and without compression and with augmentation. FINDINGS: VEINS: The common femoral vein, deep femoral vein, femoral vein and popliteal vein are compressible throughout their course, with normal flow on color Doppler imaging and normal response to augmentation on spectral Doppler imaging. SOFT TISSUES: At the left popliteal fossa there is an anechoic and avascular fluid collection measuring 0.7 x 3.3 cm in the axial plane and 4.2 cm in cephalocaudal dimension. IMPRESSION: 1. No sonographic evidence of deep vein thrombosis. 2. Gómez's cyst.
[2018-07-12] MEDS: CMC: Letrozole (NF) 2.5 MG TAB PO SCH (11:40)
[2018-07-12] MEDS: cloNIDine TAB* 0.1 MG PO SCH (20:57)
[2018-07-13] MEDS: HYDROcodone/ACETAMIN 5-325 MG* 1 TAB PO PRN ×4 (04:56→21:20)
[2018-07-13] MEDS: ZOSYN 3.375 GM Q12H per EXTENDED INFUSION IVPB SCH ×4 (04:56→15:16)
[2018-07-13 06:14] LABS: ABS Basophils 0.1 10^3/ul (0-0.2); ABS Eosinophils 0.3 10^3/ul (0-0.6); ABS Lymphocytes 0.5 10^3/ul (1.0-4.8); ABS Monocytes 0.4 10^3/ul (0-0.8); ABS Neutrophils 3.8 10^3/ul (1.5-7.7); ABS Nucleated RBC 0 10^3/ul; Eosinophil % 6.3 % (0-6); Hematocrit 23 % (35-47); Hemoglobin 7.2 g/dl (12.0-16.0); Lymphocyte % 9.4 % (25-47); Mean Corpuscular HGB Conc 31 g/dl (31-36); Mean Corpuscular Hemoglobin 22 pg (27-31); Mean Corpuscular Volume 71 fL (80-97); Mean Platelet Volume 8.7 um3 (7.4-10.4); Nucleated Red Blood Cells % 0.1; Platelet Count 318 10^3/ul (150-450); Red Blood Count 3.22 10^6/ul (4.00-5.40); Red Cell Distribution Width 18 % (10.5-15)
[2018-07-13 06:34] LABS: EGFR Non-African American 31.5 (>60)
[2018-07-13] MEDS: fentaNYL Patch Check Q Shift 1 NOTE FOLLOW UP SCH ×2 (07:17→19:35)
[2018-07-13] MEDS ORDERED: fentaNYL* 50 MCG/ML 2 ML VIAL (100 MCG VIAL) ONE ×2 (08:41→09:16)
[2018-07-13] MEDS: CMC: Letrozole (NF) 2.5 MG TAB PO SCH (10:25)
[2018-07-13] MEDS: Metoprolol Tartrate TAB* 25 MG PO SCH ×2 (10:25→21:14)
--- NOTE | 2018-07-13 11:16 | PN ---
Progress Note - Progress Note Date of Service: 07/13/18 SOAP: Subjective: [Nephrostomy tube exchange completed this am. She is having some pain following the procedure. No n/v. Remains afebrile] Objective: [ Laboratory Results - last 24 hr 07/13/18 07/13/18 06:02 06:02 WBC 5.0 RBC 3.22 L Hgb 7.2 L Hct 23 L MCV 71 L MCH 22 L MCHC 31 RDW 18 H Plt Count 318 MPV 8.7 Neut % (Auto) 75.7 Lymph % (Auto) 9.4 L Hoke % (Auto) 7.3 H Eos % (Auto) 6.3 H Baso % (Auto) 1.3 Absolute Neuts (auto) 3.8 Absolute Lymphs (auto) 0.5 L Absolute Monos (auto) 0.4 Absolute Eos (auto) 0.3 Absolute Basos (auto) 0.1 Absolute Nucleated RBC 0 Nucleated RBC % 0.1 Sodium 140 Potassium 3.6 Chloride 109 Carbon Dioxide 22 Anion Gap 9 BUN 21 Creatinine 1.57 H Est GFR ( Amer) 38.1 Est GFR (Non-Af Amer) 31.5 BUN/Creatinine Ratio 13.4 Glucose 109 H Calcium 9.1 Total Bilirubin 0.50 AST 14 ALT 10 Alkaline Phosphatase 58 Total Protein 6.7 Albumin 3.1 L Globulin 3.6 Albumin/Globulin Ratio 0.9 L Acetaminophen (Tylenol Tab*) 650 mg PO Q4H PRN PRN Reason: fever, headache, rigors Last Admin: 07/09/18 16:58 Dose: 650 mg Hydrocodone Bitart/Acetaminophen ([place] 5-325 Tab*) 1 tab PO Q4H PRN PRN Reason: PAIN Last Admin: 07/13/18 04:56 Dose: 1 tab Albuterol (Ventolin 2.5 Mg/3 Ml Neb.Gemma*) 2.5 mg INH Q4H PRN PRN Reason: SOB/WHEEZING Alteplase, Recombinant (Cathflo Activase*) 1 mg .SEE ORDER Q8HR BETZY Stop: 07/14/18 14:01 Clonidine HCl (Catapres Tab*) 0.1 mg PO BEDTIME BETZY Last Admin: 07/12/18 20:57 Dose: 0.1 mg Docusate Sodium (Colace Cap*) 100 mg PO DAILY PRN PRN Reason: CONSTIPATION Fentanyl (Duragesic Patch 12 Mcg/Hr *) 12 mcg TRANSDERM Q72H [facility] Last Admin: 07/10/18 10:33 Dose: 12 mcg Piperacillin Sod/Tazobactam (Sod 3.375 gm/ Sodium Chloride) 100 mls @ 25 mls/ hr IVPB Q12H [facility] Last Admin: 07/13/18 04:56 Dose: 25 mls/hr Letrozole (Femara (Nf)) 2.5 mg PO DAILY [facility]; Protocol Last Admin: 07/13/18 10:25 Dose: 2.5 mg Lorazepam (Ativan Inj*) 0.5 mg IV PUSH Q4H PRN PRN Reason: agitation/insomnia/anxiety Magnesium Hydroxide (Milk Of Magnesia Liq*) 30 ml PO Q6H PRN PRN Reason: Indigestion/constipation Metoprolol Tartrate (Lopressor Tab*) 12.5 mg PO BID [facility] Last Admin: 07/13/18 10:25 Dose: 12.5 mg Pharmacy Profile Note (Fentanyl Patch Check Q Shift) 1 note FOLLOW UP 0700, 1900 [facility] Last Admin: 07/13/18 07:17 Dose: 1 note Simethicone (Mylicon Tab*) 120 mg PO DAILY PRN PRN Reason: DIARRHEA Vital Signs Temp Pulse Resp BP Pulse Ox 98.1 F 93 17 182/97 98 07/13/18 10:31 07/13/18 10:31 07/13/18 10:31 07/13/18 10:31 07/13/18 10:31 Exam: Gen: Talkative 83 yo female in NAD CV: RRR, no m/r/g Resp: CTA, no w/c/r Abd: R nephrostomy tube draining clear, red tinged urine Ext: No edema] Assessment: []83 yo female with significant medical history and recent progressive metastatic endometrial cancer requiring percutaneous nephrostomy tube complicated by pyelonephritis improving on broad spectrum antibiotics. Plan: []1. Pyelonephritis: - blood cx neg, Enterococcus on urine cx - Perc. Neph. tube changed today - Cont. Zosyn, likely Augmentin at discharge 2. Endometrial Cancer: Ca 125 appears to have decreased, resumed AI - PET as outpatient 3. Hx. DVTs: IVC filter in place, doppler neg for new DVT Disp: transfer back to [facility] tomorrow
[2018-07-13] MEDS: fentaNYL PATCH 12 MCG/HR TRANSDERM SCH (11:37)
[2018-07-13] MEDS: Alteplase (CATHFLO)* 2 MG VIAL SCH ×3 (12:42→23:51)
--- NOTE | 2018-07-13 17:50 | RAD ---
CPT II Codes: G9500 Indication: Sepsis in a patient status post placement of a right percutaneous nephrostomy catheter on April 22, 2018 History: Malignant obstruction of the right ureter Anaesthesia: Lidocaine 1% locally and IV fentanyl Antibiotic prophylaxis: The patient is receiving IV Zosyn as an inpatient Contrast: 40 mL mL of Omnipaque 300 Fluoroscopy time: 1 minute and 48 seconds Procedure note and findings: The risks and benefits of the procedure were carefully explained to the patient and informed consent was obtained. The patient was appropriately positioned on the fluoroscopy table in the prone position and a formal time out was performed. The percutaneous nephrostomy tube and surrounding site was prepped and draped in standard sterile fashion. Sterile precautions including cap, mask, gown and sterile gloves were utilized. The skin surrounding the tube exit site was anesthetized with lidocaine. Injection of dilute contrast into the existing catheter demonstrates evidence of retraction of the catheter. The retention loop is tightly coiled in what appears to be an upper pole calyx. There is lobular filling defects in the right renal collecting system consistent with thrombus. The existing nephrostomy catheter tube was cut to release the pigtail loop. A 0.035" wire was inserted into the tube under fluoroscopic control to preserve access percutaneously into the collecting system. Under fluoroscopic guidance the tube was gently removed over the wire with the wire retaining access into the collecting system. Utilizing a hydrophilic wire and 5-Ethiopian curved tip catheter the wire was advanced beyond the mostly thrombus filled collecting system into the proximal right ureter. The catheter was removed. Over the wire a 10 Ethiopian pigtail catheter was inserted into the collecting system. The wire and inner stiffener were removed under fluoroscopic control leaving the pigtail loop positioned in the collecting system. The 10-Ethiopian catheter was irrigated with normal saline aspirating approximately 5 mL of blood clots. A small amount of dilute contrast was injected into the new catheter further confirming appropriate position. The pigtail loop was secured into place and the string was cut. The nephrostomy catheter was connected to a sterile drainage bag. The new percutaneous nephrostomy catheter was secured to the skin with 3-0 Surgipro tied in a "Eddi sandal" configuration. Finally the site was dressed with sterile gauze and Tegaderm. The patient tolerated the procedure well and was observed in the IR holding area prior to discharge. IMPRESSION: 1. Injection of contrast into the existing percutaneous nephrostomy catheter demonstrated the pigtail loop appear to be retracted into an upper pole calyx and was tightly bound within the calyx. Furthermore, there is thrombus nearly filling the collecting system and proximal right ureter. 2. Over a wire the existing percutaneous nephrostomy catheter was exchanged for a 10 Ethiopian pigtail catheter. 3. The 10-Ethiopian pigtail catheter was used to irrigate the collecting system extracting a proximally 5 mL of thrombus. Plan: 1. The new pigtail catheter will be irrigated with dilute TPA (1 mg /10 mL) every 8 hours x2 days. 2. Following 2 days of TPA irrigation is recommended the catheter be flushed with sterile normal saline and 10 mL's t.i.d.
[2018-07-13] MEDS: cloNIDine TAB* 0.1 MG PO SCH (21:15)
[2018-07-14] MEDS: ZOSYN 3.375 GM Q12H per EXTENDED INFUSION IVPB SCH ×2 (04:00)
[2018-07-14] MEDS: HYDROcodone/ACETAMIN 5-325 MG* 1 TAB PO PRN ×2 (04:01→10:01)
[2018-07-14] MEDS: Alteplase (CATHFLO)* 2 MG VIAL SCH (06:32)
[2018-07-14] MEDS: fentaNYL Patch Check Q Shift 1 NOTE FOLLOW UP SCH (07:15)
[2018-07-14] MEDS: Metoprolol Tartrate TAB* 25 MG PO SCH (08:38)
[2018-07-14] MEDS: CMC: Letrozole (NF) 2.5 MG TAB PO SCH (08:41)
[2018-07-14 10:01] VITALS: BP 143/86
--- NOTE | 2018-07-14 11:48 | DS ---
CC: Dr. Ken Finnegan; Dr. Zena Augustin* DISCHARGE SUMMARY: DATE OF ADMISSION: 07/08/18 DATE OF DISCHARGE: 07/14/18 PRIMARY CARE PROVIDER: Dr. Ken Finnegan. PRIMARY ONCOLOGIST AND ATTENDING PHYSICIAN: Dr. Zena Augustin* (dictated by HA Hobson). DISCHARGING PROVIDER: HA Hobson PRIMARY DISCHARGE DIAGNOSES: 1. Acute right pyelonephritis with nephrostomy tube in place, status post exchange by Interventional Radiology. 2. Metastatic endometrial cancer. 3. Right ureteral obstruction secondary to malignancy with nephrostomy tube initially placed April 2018 at [facility]. DISCHARGE MEDICATIONS: 1. Allopurinol 300 mg p.o. daily. 2. Calcium and vitamin D one tablet p.o. daily. 3. Docusate 100 mg p.o. daily. 4. Lasix 40 mg p.o. daily. 5. Multivitamin with iron 1 capsule p.o. twice daily. 6. Meclizine 25 mg p.o. daily. 7. Simethicone 125 mg p.o. daily as needed. 8. Augmentin 875/125 one tablet p.o. twice daily x10 days. 9. Clonidine 0.1 mg p.o. at bedtime. 10. Fentanyl patch 12 mcg transdermally changed every 72 hours. 11. Hydrocodone/acetaminophen 5/325 one to two tablets p.o. q.4 hours as needed for pain. 12. Letrozole 2.5 mg p.o. daily. 13. Metoprolol tartrate 12.5 mg p.o. twice daily. Medication changes: 1. Augmentin x10 days. 2. Start fentanyl patch. 3. Start hydrocodone/acetaminophen. 4. Start letrozole. HOSPITAL IMAGIN. Venous Doppler study on the left lower extremity is negative for DVT. There is a Gómez's cyst present. 2. Nephrostomy tube exchange 07/13/18. HOSPITAL COURSE: This is an 83-year-old female with metastatic endometrial cancer who most recently was participating in rehab at [facility], who developed increased back pain and confusion and was subsequently transferred to our facility for what was likely a right pyelonephritis with nephrostomy tube in place requiring exchange. Prior to this transfer, the patient was at [facility] in April with complaints of right flank pain, which was secondary to acute right ureteral obstruction thought to be due to progressive malignancy and resulted in right nephrostomy tube placed and the patient was started on an aromatase inhibitor at that time. She was treated with IV antibiotics and discharged with amoxicillin and was doing relatively well over the last couple of months. She had developed increased back pain and was ultimately hospitalized at [facility] for pain management earlier this month and transitioned to swing bed status for additional rehab on the . The patient subsequently developed increased confusion with evidence of acute infection, which prompted her transfer to our facility on the 07/08/18. During her stay here, her blood cultures were negative, urine culture grew enterococcus, and the patient initially was empirically treated with vancomycin and Zosyn and eventually narrowed to Zosyn alone. The patient's mental status returned to baseline through the course of her hospital stay and she had no documented fevers beyond her first day here. The patient underwent nephrostomy tube exchange with interventional radiologist , Dr. Eddi Angelo on 07/13/18. Per his report, the pigtail catheter was full of thrombus and it was a difficult to exchange. The patient experienced a significant amount of pain as a result of this procedure. She otherwise tolerated it well without any significant complications. DISPOSITION AND FOLLOWUP PLAN: The patient is being discharged back to [facility] swing bed status for additional rehab as she is still not able to live independently at this time due to deconditioning from her multiple hospitalizations. Her CA-125 does show improvement since being on an aromatase inhibitor and in terms of her malignancy, the plan is to repeat a PET scan sometime in the next couple of weeks and to follow up with Dr. Augustin in regards to future treatment planning. The patient's pain medications have been adjusted as listed above and may require further titration. Hopefully, her right-sided pain will decrease after this nephrostomy tube exchange and the pain medications can be slowly tapered. HA HOBSON [id number]/[facility] #: [id number] [facility]LL MEDICAL CENTERKeisha
== END 2018-07-14 12:00 | disposition swing bed (61) | DRG 699 ==
LOC: MED 12:13
PROVIDERS: ADMIT Internal Medicine Hematology & Oncology; ATTEND Internal Medicine Hematology & Oncology
PROC: 0T25X0Z Change Drainage Device in Kidney, External Approach (ICD-10-PCS; principal; 2018-07-13)
DX: T83.512A Infection and inflammatory reaction due to nephrostomy catheter, initial encounter (principal); N10 Acute pyelonephritis; N11.1 Chronic obstructive pyelonephritis; I47.1 Supraventricular tachycardia; C79.82 Secondary malignant neoplasm of genital organs; B95.2 Enterococcus as the cause of diseases classified elsewhere; J45.909 Unspecified asthma, uncomplicated; N18.9 Chronic kidney disease, unspecified; E78.00 Pure hypercholesterolemia, unspecified; M47.9 Spondylosis, unspecified; E66.9 Obesity, unspecified; M48.02 Spinal stenosis, cervical region; I10 Essential (primary) hypertension; R59.9 Enlarged lymph nodes, unspecified; X58.XXXA Exposure to other specified factors, initial encounter; Z93.6 Other artificial openings of urinary tract status; Z79.1 Long term (current) use of non-steroidal anti-inflammatories (NSAID); Z79.899 Other long term (current) drug therapy; Z88.2 Allergy status to sulfonamides; Z88.8 Allergy status to other drugs, medicaments and biological substances; Z86.718 Personal history of other venous thrombosis and embolism; Z68.38 Body mass index [BMI] 38.0-38.9, adult; Y92.9 Unspecified place or not applicable
CPT/HCPCS: 36415; 50435; 80048; 80053; 80202; 82565; 83605; 84520; 85025; 86304; 87040; 87077; 87086; 87186; 99222; 99232; 99239; A9270-GY; C1729; C1769; C1887; G8978-GP-CK; G8979-GP-CI; G8980-GP-CK; G8987-GO-CK; G8988-GO-CI; G8989-GO-CI; J2060; J2543; J2997; J3010; J3370; Q9967

== ENCOUNTER → 2018-08-25 12:54 | Day surgery (SDC) | payer MEDICARE ==
[~2018-08-25 12:54] MED LIST: Buffered Lidocaine 0.9% SYRIN* 5 ML/SYR SYRINGE INTRADERM ONE; Glycopyrrolate IV* 0.2 MG/ML 1 ML VIAL ONE; HYDROcodone/ACETAMIN 5-325 MG* 1 TAB ONE; HYDROcodone/ACETAMIN 5-325 MG* 1 TAB PO PRN; Hydrocodone/Acetamin 10/325 1 TAB PO ONE; KETAMINE HCL* 50 MG/ML 10 ML VIAL ONE; Midazolam* 1 MG/ML 2 ML VIAL (2 MG) ONE; Naloxone* 0.4 MG/ML 1 ML VIAL IV PRN; Ondansetron INJ* 2 MG/ML VIAL IV PRN; Propofol* 10 MG/ML 20 ML BTL IV PUSH ONE; Succinylcholine* 20 MG/ML 10 ML VIAL ONE; ZOSYN 3.375 GM Q6H - Intermittant 30 min Infusion IVPB ONE; fentaNYL* 50 MCG/ML 2 ML VIAL (100 MCG VIAL) IV PRN; fentaNYL* 50 MCG/ML 2 ML VIAL (100 MCG VIAL) ONE
[2018-08-25 17:58] VITALS: BP 140/80
--- NOTE | 2018-08-25 19:08 | RAD ---
CPT II Codes: G9500 Indication: There are reports of bleeding and pericatheter urine drainage. History: Endometrial cancer Anaesthesia: Lidocaine 1% locally. General anesthesia provided by anesthesiology. Please see anesthesiology note for details. Antibiotic prophylaxis: Zosyn Contrast: 40 mL of Visipaque 320 Fluoroscopy time: 69 seconds Procedure note and findings: The risks and benefits of the procedure were carefully explained to the patient and informed consent was obtained. The patient was appropriately positioned on the fluoroscopy table in the prone position and a formal time out was performed. The percutaneous nephrostomy tube and surrounding site was prepped and draped in standard sterile fashion. Sterile precautions including cap, mask, gown and sterile gloves were utilized. The skin surrounding the tube exit site was anesthetized with lidocaine. Injection of dilute contrast into the existing PCN tube demonstrated the pigtail loop to be positioned appropriately in the collecting system. The existing nephrostomy catheter tube was cut to release the pigtail loop. A 0.035" wire was inserted into the tube under fluoroscopic control to preserve access percutaneously into the collecting system. Under fluoroscopic guidance the tube was gently removed over the wire with the wire retaining access into the collecting system. Over the wire a new 10 Maltese pigtail catheter was inserted into the collecting system. The wire and inner stiffener were removed under fluoroscopic control leaving the pigtail loop positioned in the collecting system. A small amount of dilute contrast was injected into the new catheter further confirming appropriate position. The pigtail loop was secured into place and the string was cut. The nephrostomy catheter was connected to a sterile drainage bag. With the irrigation and a small amount of old blood clots was irrigated. Mild irrigation was performed by gently injecting 10 mL's of sterile saline and allowing it to drain into a drainage bag. The new percutaneous nephrostomy catheter was secured to the skin with 2-0 Surgipro tied in a "Dedi sandal" configuration. Finally the site was dressed with sterile gauze and Tegaderm. The patient tolerated the procedure well and was observed in the PACU prior to discharge. IMPRESSION: 1. Injection of contrast into the existing percutaneous nephrostomy catheter demonstrated appropriate position of the pigtail loop in the collecting system. 2. Filling defects in the lower pole calyces are likely old blood clots as the patient had a right renal collecting system mostly filled with thrombus during the July 13, 2018 nephrostogram. 3. Over a wire the existing percutaneous nephrostomy catheter was exchanged for a new 10 Maltese pigtail catheter. Plan: 1. Recommendation made to gently irrigate the percutaneous nephrostomy tube with 10 mLs of heparinized saline daily. 2. Assuming normal urine output, recommend routine exchange in approximately 3 months from today.
== END | disposition home or self-care (01) ==
LOC: OR 12:54
PROVIDERS: ATTEND Internal Medicine
DX: N99.528 Other complication of incontinent external stoma of urinary tract (principal); N13.9 Obstructive and reflux uropathy, unspecified; C54.1 Malignant neoplasm of endometrium
CPT/HCPCS: 50435; C1729; J0330; J2250; J2543; J2704; J3010; Q9967